=== PATIENT | male | born 1940 ===

== ENCOUNTER 2017-08-17 11:29 | Emergency (ER) | payer MEDICARE, OTHER ==
[2017-08-17 11:44] VITALS: BP 138/76
--- NOTE | 2017-08-17 11:56 | UC ---
Skin Complaint HPI - HPI Summary HPI Summary: rash x 4 days exposure to bamboo located on his right and left arm , right lower leg , abdominal area on the right side the area is very red, itchy , mild pain no fever, no chills - History of Current Complaint Chief Complaint: [place] Time Seen by Provider: 08/17/17 11:36 Stated Complaint: RASH ON ARMS Hx Obtained From: Patient Onset/Duration: Gradual Onset, Lasting Days - 4, Still Present Timing: Constant Onset Severity: Moderate Current Severity: Severe Pain Intensity: 0 Location: Discrete - right and left arm , right side of abd, right upper leg Character: Swelling, Pruritus, Redness, Raised Aggravating Factor(s): Nothing Alleviating Factor(s): Nothing Associated Signs & Symptoms: Positive: Rash Related History: Possible Reaction to: Environmental Exposure - bamboo - Allergy/Home Medications Allergies/Adverse Reactions: Allergies Allergy/AdvReac Type Severity Reaction Status Date / Time Penicillins Allergy Severe Anaphylatic Verified 08/17/17 11:44 Shock Review of Systems Constitutional: Negative Skin: Rash Eyes: Negative ENT: Negative Respiratory: Negative Cardiovascular: Negative Is Patient Immunocompromised?: No All Other Systems Reviewed And Are Negative: Yes PMH/Surg Hx/FS Hx/Imm Hx Cardiovascular History: Hypertension - Surgical History Surgical History: None - Family History Known Family History: Positive: Hypertension - Social History Alcohol Use: None Substance Use Type: None Smoking Status (MU): Never Smoked Tobacco Have You Smoked in the Last Year: No Physical Exam Triage Information Reviewed: Yes Appearance: Well-Appearing, No Pain Distress, Well-Nourished Vital Signs: Initial Vital Signs Temp 97.7 F 08/17/17 11:36 Pulse 57 08/17/17 11:36 Resp 16 08/17/17 11:36 BP 138/76 08/17/17 11:36 Pulse Ox 100 08/17/17 11:36 Vital Signs Reviewed: Yes Eye Exam: Normal Eyes: Positive: Conjunctiva Clear ENT: Positive: Normal ENT inspection, Hearing grossly normal, Pharynx normal Respiratory: Positive: Chest non-tender, Lungs clear, Normal breath sounds Cardiovascular: Positive: RRR, No Murmur, Pulses Normal Musculoskeletal Exam: Normal Musculoskeletal: Positive: Strength Intact, ROM Intact Skin: Positive: Other - maculopapulary rash of both arms, right leg and right side of abd + erythema, swelling, no tenderness Course/Dx - Diagnoses Provider Diagnoses: contact dermatitis Discharge - Sign-Out/Discharge Documenting (check all that apply): Discharge/Admit/Transfer - Discharge Plan Condition: Stable Disposition: HOME Prescriptions: DOXYcycline CAP(*) [DOXYcycline 100MG CAP(*)] 100 mg PO BID #20 cap predniSONE [Prednisone 20 MG TAB] 40 mg PO DAILY WITH MEAL #10 tablet Triamcinolone 0.1% CREAM(NF) [Kenalog 0.1% Cream (NF)] 1 applic TOPICAL BID #60 gm Patient Education Materials: Contact Dermatitis (DC) Referrals: Reuben Raphael MD [Primary Care Provider] - 5 Days - Billing Disposition and Condition Condition: STABLE Disposition: Home
== END 2017-08-17 12:01 | disposition home or self-care (01) ==
LOC: UCCORT 11:29
DX: L25.9 Unspecified contact dermatitis, unspecified cause (principal); Z88.0 Allergy status to penicillin
CPT/HCPCS: 99212; G0463